=== PATIENT | female | born 1975 | race African-American/Black ===

== ENCOUNTER 2017-07-27 12:24 | Outpatient (CLI) | payer MEDICARE ==
--- NOTE | 2017-07-27 13:57 | RAD ---
PA AND LATERAL CHEST XRAY: DATE: 07/27/17. HISTORY: Hypertension and abnormal weight gain. Shortness of breath. COMPARISON: 06/03/11. FINDINGS: The cardiac silhouette and pulmonary vasculature are within normal limits. The lungs remain clear. There has been no interval change when compared to the prior exam. IMPRESSION: No acute cardiopulmonary process. POS: [facility]
== END 2017-07-27 12:25 | disposition home or self-care (01) ==
LOC: RAD 12:24
PROVIDERS: ATTEND Family Medicine
DX: R06.02 Shortness of breath (principal); I10 Essential (primary) hypertension; R63.5 Abnormal weight gain
CPT/HCPCS: 71020

== ENCOUNTER 2017-07-31 21:25 | Emergency (ER) | payer MEDICARE ==
[2017-07-31 22:15] LABS: ALT (SGPT) 19 U/L (8-55); AST (SGOT) 18 U/L (5-34); Alkaline Phosphatase 104 U/L (40-150); Anion Gap 16 mmol/L (10-20); BUN (Urea Nitrogen) 18 mg/dL (7.0-18.7); Bilirubin, Total 0.6 mg/dL (0.2-1.2); Calc. Creatinine Clearance 0 mL/min (70-130); Calcium 9.7 mg/dL (7.8-10.44); Carbon Dioxide 27 mmol/L (22-29); Chloride 102 mmol/L (98-107); Estimated GFR-MDRD 45; Globulin 4.1 g/dL (2.4-3.5); Lipase 14 U/L (8-78); Protein, Total 7.7 g/dL (6.0-8.3)
[2017-07-31 22:19] LABS: #Basophils 0.1 thou/uL (0.0-0.2); #Lymphocytes 1.6 thou/uL (1.20-3.40); #Monocytes 0.9 thou/uL (0.11-0.59); #Neutrophils 7.5 thou/uL (1.40-6.50); %Basophils 0.6 % (0.0-1.0); %Eosinophils 0.4 % (0.0-10.0); %Lymphocytes 15.9 % (21.0-51.0); %Monocytes 8.4 % (0.0-10.0); Anisocytosis SLIGHT = 6-15 cells (100X) (0-5/hpf); Hematocrit 38.8 % (36.0-47.0); Hypochromia SLIGHT = 6-15 cells (100X) (0-5/hpf); Mean Platelet Volume 10.7 fL (7.4-10.4); Neutrophil 77 % (42-75); Red Blood Cell (RBC) Count 4.75 mill/uL (4.20-5.40); White Blood Cell (WBC) Count 10.1 thou/uL (4.8-10.8)
== END 2017-07-31 22:41 | disposition home or self-care (01) ==
LOC: SCSER 21:25
DX: R19.7 Diarrhea, unspecified (principal); R11.2 Nausea with vomiting, unspecified; E66.9 Obesity, unspecified; J45.909 Unspecified asthma, uncomplicated; I10 Essential (primary) hypertension; F17.210 Nicotine dependence, cigarettes, uncomplicated; F31.9 Bipolar disorder, unspecified; F41.9 Anxiety disorder, unspecified
CPT/HCPCS: 80053; 83690; 84703; 85025; 96360; 99406

== ENCOUNTER 2017-11-04 19:30 | Outpatient (CLI) | payer MEDICARE, OTHER | END 2017-11-04 19:31 | disposition home or self-care (01) | LOC: SLEEPLAB 19:30 | PROVIDERS: ATTEND Family Medicine | DX: R40.0 Somnolence (principal); R53.83 Other fatigue; I10 Essential (primary) hypertension | CPT/HCPCS: 95811 ==

== ENCOUNTER 2017-12-01 22:09 | Emergency (ER) | payer MEDICARE, OTHER, MEDICAID ==
--- NOTE | 2017-12-01 23:14 | RAD ---
PORTABLE AP CHEST X-RAY 12/01/17 HISTORY: Hypertension, abnormal weight gain, shortness of breath. COMPARISON: 07/27/17. FINDINGS: The cardiac silhouette and pulmonary vasculature are within normal limits. There is a curvilinear inc reased density seen at the medial left lung base which may represent either atelectasis or scarring. Lungs are otherwise clear. No other interval change. IMPRESSION: Curvilinear area of scarring versus atelectasis left lung base. There is otherwise no acute cardiopul monary process. POS: [facility]
[2017-12-01 23:15] LABS: #Basophils 0.1 thou/uL (0.0-0.2); #Eosinphils 0.2 thou/uL (0.0-0.7); #Monocytes 0.9 thou/uL (0.11-0.59); #Neutrophils 6.9 thou/uL (1.40-6.50); %Basophils 0.9 % (0.0-1.0); %Eosinophils 1.4 % (0.0-10.0); %Lymphocytes 33.4 % (21.0-51.0); %Monocytes 7.2 % (0.0-10.0); %Neutrophils 57.1 % (42.0-75.0); Hemoglobin 11.5 g/dL (12.0-16.0); Mean Corpuscular Volume 77.5 fl (81.0-99.0); Mean Platelet Volume 10.6 fL (7.4-10.4); Platelet Count 285 thou/uL (130-400); RBC Distribution Width 17.3 % (11.5-14.5); Red Blood Cell (RBC) Count 4.76 mill/uL (4.20-5.40)
[2017-12-01 23:18] LABS: Anisocytosis SLIGHT = 6-15 cells (100X) (0-5/hpf)
[2017-12-01 23:19] LABS: Anion Gap 15 mmol/L (10-20); BUN (Urea Nitrogen) 10 mg/dL (7.0-18.7); Calc. Creatinine Clearance 0 mL/min (70-130); Carbon Dioxide 25 mmol/L (22-29); Chloride 106 mmol/L (98-107); Estimated GFR-MDRD 62; Glucose 113 mg/dL (70-105); Potassium 4.1 mmol/L (3.5-5.1); Sodium 142 mmol/L (136-145)
[2017-12-01 23:24] LABS: CKMB 1.2 ng/mL (0-6.6); Troponin I Less than 0.010 ng/mL (< 0.028)
--- NOTE | 2017-12-29 13:18 | EKG ---
Test Reason : Blood Pressure : / mmHG Vent. Rate : 084 BPM Atrial Rate : 084 BPM P-R Int : 168 ms QRS Dur : 082 ms QT Int : 370 ms P-R-T Axes : 056 032 042 degrees QTc Int : 437 ms Normal sinus rhythm Possible Left atrial enlargement Borderline ECG Confirmed by ADAL FARRIS ([id number]), story editor DANNY AZEVEDO ([id number]) on 12/29/2017 1:18:11 PM Referred By: Confirmed By:ADAL FARRIS
== END 2017-12-01 23:32 | disposition home or self-care (01) ==
LOC: SCSER 22:09
DX: R68.84 Jaw pain (principal); I10 Essential (primary) hypertension; J45.909 Unspecified asthma, uncomplicated; E66.9 Obesity, unspecified; F41.9 Anxiety disorder, unspecified; F31.9 Bipolar disorder, unspecified; F17.210 Nicotine dependence, cigarettes, uncomplicated; Z79.899 Other long term (current) drug therapy
CPT/HCPCS: 71045; 80048; 82553; 84484; 85025; 93005; 96372

== ENCOUNTER 2018-01-12 11:28 | Outpatient (CLI) | payer MEDICARE, MEDICAID | END 2018-01-12 11:29 | disposition home or self-care (01) | LOC: BICMAMMO 11:28 | PROVIDERS: ATTEND Family Medicine | DX: Z12.31 Encounter for screening mammogram for malignant neoplasm of breast (principal) | CPT/HCPCS: 77063; 77067 ==

== ENCOUNTER 2018-04-24 12:54 | Outpatient (CLI) | payer MEDICARE, MEDICAID ==
--- NOTE | 2018-04-24 13:17 | RAD ---
CHEST TWO VIEWS: History: Dyspnea. Comparison: 12-01-17 FINDINGS: Cardiac silhouette and pulmonary vasculature are unremarkable. Mediastinum is midline. Posterior cost ophrenic angles are excluded from the image. There is no confluent airspace consolidation, pneumothor ax, or pleural fluid apparent. IMPRESSION: No active cardiopulmonary abnormalities are demonstrated. POS: [facility]
== END 2018-04-24 12:55 | disposition home or self-care (01) ==
LOC: RAD 12:54
PROVIDERS: ATTEND Internal Medicine Critical Care Medicine
DX: R06.00 Dyspnea, unspecified (principal)
CPT/HCPCS: 71046

== ENCOUNTER 2018-07-08 11:22 | Emergency (ER) | payer MEDICARE, MEDICAID ==
[2018-07-08 12:34] LABS: Anisocytosis SLIGHT = 6-15 cells (100X) (0-5/hpf); Band 1 % (5-11); Eosinophils 2 % (0-10); Hemoglobin 10.2 g/dL (12.0-16.0); Hypochromia SLIGHT = 6-15 cells (100X) (0-5/hpf); Lymphocytes 28 % (21-51); MDiff Complete? YES; Macrocytosis SLIGHT = 6-15 cells (100X) (0-5/hpf); Mean Corpuscular Hemoglobin 23.4 pg (27.0-31.0); Mean Corpuscular Volume 75.5 fL (78.0-98.0); Mean Platelet Volume 11.3 fL (7.4-10.4); Microcytosis SLIGHT = 6-15 cells (100X) (0-5/hpf); Monocytes 10 % (0-10); Neutrophil 56 % (42-75); PLT Morphology Comment Appears Adequate; Platelet Count 228 thou/uL (130-400); Polychromasia SLIGHT = 2-3 cells (100X) (0-2/hpf); Reactive Lymphocytes 3 % (0-10); Red Blood Cell (RBC) Count 4.37 mill/uL (4.20-5.40); Target Cells SLIGHT = 2-5 cells (100X) (0-1/hpf); White Blood Cell (WBC) Count 11.6 thou/uL (4.8-10.8)
[2018-07-08 12:38] LABS: ALT (SGPT) 20 U/L (8-55); AST (SGOT) 22 U/L (5-34); Albumin 4.2 g/dL (3.5-5.0); Alkaline Phosphatase 106 U/L (40-150); Anion Gap 16 mmol/L (10-20); BUN (Urea Nitrogen) 11 mg/dL (7.0-18.7); Bilirubin, Total 0.5 mg/dL (0.2-1.2); Calc. Creatinine Clearance 0 mL/min (70-130); Calcium 10.2 mg/dL (7.8-10.44); Carbon Dioxide 23 mmol/L (22-29); Chloride 104 mmol/L (98-107); Estimated GFR-MDRD 52; Globulin 4.5 g/dL (2.4-3.5); Glucose 129 mg/dL (70-105); Potassium 4.2 mmol/L (3.5-5.1); Protein, Total 8.7 g/dL (6.0-8.3); Sodium 139 mmol/L (136-145)
[2018-07-08 12:45] LABS: BHCG - Serum Negative (NEGATIVE); Pregs Control Background? CLEAR/WHITE (CLR/WHITE); Pregs Control Bar Appear? YES (CONTROL BAR)
== END 2018-07-08 15:17 | disposition home or self-care (01) ==
LOC: SCSER 11:22
DX: I10 Essential (primary) hypertension (principal); N19 Unspecified kidney failure; D50.9 Iron deficiency anemia, unspecified; E66.9 Obesity, unspecified; J45.909 Unspecified asthma, uncomplicated; F41.0 Panic disorder [episodic paroxysmal anxiety]; F17.210 Nicotine dependence, cigarettes, uncomplicated; Z71.6 Tobacco abuse counseling; Z79.899 Other long term (current) drug therapy
CPT/HCPCS: 36416; 80053; 84703; 85025; 93005; 99406; 36415-59

== ENCOUNTER 2019-03-11 14:24 | Outpatient (CLI) | payer MEDICARE, MEDICAID ==
--- NOTE | 2019-03-11 15:19 | MMO ---
Bilateral MAMMO Bilat Screen [facility]. CLINICAL HISTORY: Patient is 43 years old and is seen for screening. The patient has no family history of breast cancer. The patient has no personal history of cancer. VIEWS: The views performed were: bilateral craniocaudal with tomosynthesis and bilateral mediolateral oblique with tomosynthesis. FILMS COMPARED: The present examination has been compared to prior imaging studies performed at [facility] on 09/09/2016 and 01/12/2018. MAMMOGRAM FINDINGS: The breasts are almost entirely fat. There is an oval mass measuring 4 millimeters seen in the anterior region of the left breast at 6 o'clock. In the right breast, there are no suspicious masses, calcifications or areas of architectural distortion. IMPRESSION: MASS IN THE LEFT BREAST REQUIRES ADDITIONAL EVALUATION. SPOT COMPRESSION IS RECOMMENDED. AN ULTRASOUND EXAM IS RECOMMENDED IF NEEDED. ADDITIONAL IMAGING. THE RESULTS OF THIS EXAM WERE SENT TO THE PATIENT. ACR BI-RADS Category 0 - Incomplete: Need additional imaging evaluation. [facility] will notify the patient of the need for additional imaging services. MAMMOGRAPHY NOTE: 1. A negative mammogram report should not delay a biopsy if a dominant of clinically suspicious mass is present. 2. Approximately 10% to 15% of breast cancers are not detected by mammography. 3. Adenosis and dense breasts may obscure an underlying neoplasm. Reported by: Ana Paula PARKER Electonically Signed: [id number]
== END 2019-03-11 14:25 | disposition home or self-care (01) ==
LOC: BICMAMMO 14:24
PROVIDERS: ATTEND Family Medicine
DX: Z12.31 Encounter for screening mammogram for malignant neoplasm of breast (principal); N63.23 Unspecified lump in the left breast, lower outer quadrant
CPT/HCPCS: 77063; 77067

== ENCOUNTER 2019-03-25 09:44 | Outpatient (CLI) | payer MEDICARE, MEDICAID ==
--- NOTE | 2019-03-25 10:24 | MMO ---
Left Breast MAMMO Unilat Diag [facility]. CLINICAL HISTORY: Patient is 43 years old and is seen for diagnostic exam. The patient has no family history of breast cancer. The patient has no personal history of cancer. VIEWS: The views performed were: left craniocaudal with tomosynthesis; left mediolateral oblique with tomosynthesis; and left mediolateral with tomosynthesis. FILMS COMPARED: The present examination has been compared to prior imaging studies performed at [facility] on 09/09/2016, 01/12/2018 and 03/11/2019. MAMMOGRAM FINDINGS: The breast is almost entirely fat. Tomosynthesis compression images show the abnormality to represent superimpostion of normal breast parenchyma. There are no suspicious masses, suspicious calcifications, or new areas of architectural distortion. IMPRESSION: THERE IS NO MAMMOGRAPHIC EVIDENCE OF MALIGNANCY. A ROUTINE FOLLOW-UP MAMMOGRAM IN 1 YEAR IS RECOMMENDED. THE RESULTS OF THIS EXAM WERE SENT TO THE PATIENT. ACR BI-RADS Category 2 - Benign finding MAMMOGRAPHY NOTE: 1. A negative mammogram report should not delay a biopsy if a dominant of clinically suspicious mass is present. 2. Approximately 10% to 15% of breast cancers are not detected by mammography. 3. Adenosis and dense breasts may obscure an underlying neoplasm. Reported by: ZEKE GUILLORY MD Electonically Signed: [id number]
== END 2019-03-25 09:45 | disposition home or self-care (01) ==
LOC: BICMAMMO 09:44
PROVIDERS: ATTEND Family Medicine
DX: N63.20 Unspecified lump in the left breast, unspecified quadrant (principal)
CPT/HCPCS: 77065; G0279

== ENCOUNTER 2020-04-16 14:36 | Outpatient (CLI) | payer MEDICARE, OTHER ==
--- NOTE | 2020-04-16 16:21 | MMO ---
Bilateral MAMMO Bilat Screen [facility]. CLINICAL HISTORY: Patient is 44 years old and is seen for screening. The patient has no family history of breast cancer. The patient has no personal history of cancer. VIEWS: The views performed were: bilateral craniocaudal with tomosynthesis and bilateral mediolateral oblique with tomosynthesis. FILMS COMPARED: The present examination has been compared to prior imaging studies performed at [facility] on 09/09/2016, 01/12/2018, 03/11/2019 and 03/25/2019. This study has been interpreted with the assistance of computer-aided detection. MAMMOGRAM FINDINGS: The breasts are almost entirely fat. There are no suspicious masses, suspicious calcifications, or new areas of architectural distortion. IMPRESSION: THERE IS NO MAMMOGRAPHIC EVIDENCE OF MALIGNANCY. A ROUTINE FOLLOW-UP MAMMOGRAM IN 1 YEAR IS RECOMMENDED. THE RESULTS OF THIS EXAM WERE SENT TO THE PATIENT. ACR BI-RADS Category 1 - Negative MAMMOGRAPHY NOTE: 1. A negative mammogram report should not delay a biopsy if a dominant of clinically suspicious mass is present. 2. Approximately 10% to 15% of breast cancers are not detected by mammography. 3. Adenosis and dense breasts may obscure an underlying neoplasm. Reported by: SHERITA MUSE MD Electonically Signed: [id number]
== END 2020-04-16 14:37 | disposition home or self-care (01) ==
LOC: BICMAMMO 14:36
PROVIDERS: ATTEND Student in an Organized Health Care Education/Training Program
DX: Z12.31 Encounter for screening mammogram for malignant neoplasm of breast (principal)
CPT/HCPCS: 77063; 77067

== ENCOUNTER 2020-12-06 13:09 | Emergency (ER) | payer OTHER ==
[2020-12-06] MEDS ORDERED: Ketorolac Tromethamine 30 MG/ML VIAL ONE (13:43)
== END 2020-12-06 15:38 | disposition home or self-care (01) ==
LOC: ERS 13:09
DX: M79.672 Pain in left foot (principal); I10 Essential (primary) hypertension; F17.210 Nicotine dependence, cigarettes, uncomplicated; W01.0XXA Fall on same level from slipping, tripping and stumbling without subsequent striking against object, initial encounter
CPT/HCPCS: 96372; J1885

== ENCOUNTER 2021-03-12 21:33 | Emergency (ER) | payer MEDICARE, OTHER ==
[~2021-03-12 21:33] MED LIST: Iopamidol-370 76% 500 ML 1 ML ONE
[2021-03-12 22:05] LABS: #Eosinphils 0.1 thou/uL (0.0-0.7); #Lymphocytes 3.2 thou/uL (1.20-3.40); #Neutrophils 9.8 thou/uL (1.40-6.50); %Basophils 0.2 % (0.0-1.0); %Eosinophils 0.7 % (0.0-10.0); %Monocytes 6.8 % (0.0-10.0); %Neutrophils 69.3 % (42.0-75.0); Hemoglobin 12.1 g/dL (12.0-16.0); Mean Corpuscular HGB CONC 32.6 g/dL (32.0-36.0); Mean Corpuscular Hemoglobin 30.6 pg (27.0-31.0); Mean Corpuscular Volume 93.9 fL (78.0-98.0); Mean Platelet Volume 9.8 fL (7.4-10.4); Platelet Count 205 thou/uL (130-400); RBC Distribution Width 14.2 % (11.5-14.5); Red Blood Cell (RBC) Count 3.97 mill/uL (4.20-5.40); White Blood Cell (WBC) Count 14.1 thou/uL (4.8-10.8)
[2021-03-12 22:27] LABS: ALT (SGPT) 10 U/L (8-55); AST (SGOT) 11 U/L (5-34); Albumin 3.9 g/dL (3.5-5.0); Alkaline Phosphatase 152 U/L (40-110); Anion Gap 13 mmol/L (10-20); BUN (Urea Nitrogen) 15 mg/dL (7.0-18.7); Bilirubin, Total 0.8 mg/dL (0.2-1.2); Calc. Creatinine Clearance 0 mL/min (70-130); Calcium 9.4 mg/dL (7.8-10.44); Carbon Dioxide 23 mmol/L (22-29); Chloride 105 mmol/L (98-107); Globulin 4.2 g/dL (2.4-3.5); Glucose 96 mg/dL (70-105); Lipase 17 U/L (8-78); Potassium 4.1 mmol/L (3.5-5.1); Protein, Total 8.1 g/dL (6.0-8.3); Sodium 137 mmol/L (136-145)
[2021-03-12] MEDS ORDERED: Acetaminophen 500 MG TAB ONE (23:12)
== END 2021-03-13 00:05 | disposition home or self-care (01) ==
LOC: ERS 21:33
DX: K52.9 Noninfective gastroenteritis and colitis, unspecified (principal); I10 Essential (primary) hypertension; J45.909 Unspecified asthma, uncomplicated; E66.9 Obesity, unspecified; F17.210 Nicotine dependence, cigarettes, uncomplicated
CPT/HCPCS: 74177; 80053; 83605; 83690; 84484; 85025; 87040; Q9967

== ENCOUNTER 2021-04-21 08:27 | Outpatient (CLI) | payer MEDICARE, OTHER | END 2021-04-21 08:28 | disposition home or self-care (01) | LOC: BICMAMMO 08:27 | PROVIDERS: ATTEND Student in an Organized Health Care Education/Training Program | DX: Z12.31 Encounter for screening mammogram for malignant neoplasm of breast (principal) | CPT/HCPCS: 77063; 77067 ==

== ENCOUNTER 2021-10-11 20:24 | Emergency (ER) | payer MEDICARE, MEDICAID, OTHER ==
[2021-10-11] MEDS ORDERED: Ketorolac Tromethamine 30 MG/ML VIAL ONE (20:59)
[2021-10-11] MEDS ORDERED: Dexamethasone 10 MG/ML VIAL ONE (20:59)
== END 2021-10-11 21:10 | disposition home or self-care (01) ==
LOC: ERS 20:24
DX: M77.12 Lateral epicondylitis, left elbow (principal); I10 Essential (primary) hypertension; E66.9 Obesity, unspecified; J45.909 Unspecified asthma, uncomplicated; F17.210 Nicotine dependence, cigarettes, uncomplicated; Z79.899 Other long term (current) drug therapy; Z79.84 Long term (current) use of oral hypoglycemic drugs
CPT/HCPCS: 96372; 99283; J1100; J1885

== ENCOUNTER 2021-10-17 13:19 | Emergency (ER) | payer MEDICAID, MEDICARE, OTHER ==
[2021-10-17 22:09] LABS: SARS-CoV-2 PCR by NAA Not Detected (NotDetected)
== END 2021-10-17 16:40 | disposition home or self-care (01) ==
LOC: ERS 13:19
DX: R11.2 Nausea with vomiting, unspecified (principal); R19.7 Diarrhea, unspecified; I10 Essential (primary) hypertension; J45.909 Unspecified asthma, uncomplicated; E66.9 Obesity, unspecified; F17.210 Nicotine dependence, cigarettes, uncomplicated; Z20.822 Contact with and (suspected) exposure to COVID-19; Z79.899 Other long term (current) drug therapy
CPT/HCPCS: 87804 ×2; U0003; U0005; 99284

== ENCOUNTER 2022-01-26 14:46 | Emergency (ER) | payer MEDICARE, OTHER ==
[2022-01-26 15:17] LABS: #Basophils 0.1 thou/uL (0.0-0.2); #Eosinphils 0.2 thou/uL (0.0-0.7); #Lymphocytes 3.1 thou/uL (1.20-3.40); #Monocytes 0.8 thou/uL (0.11-0.59); #Neutrophils 9.1 thou/uL (1.40-6.50); %Basophils 0.5 % (0.0-1.0); %Eosinophils 1.5 % (0.0-10.0); %Lymphocytes 23.1 % (21.0-51.0); %Monocytes 6.2 % (0.0-10.0); %Neutrophils 68.7 % (42.0-75.0); Hemoglobin 12.2 g/dL (12.0-16.0); Mean Corpuscular HGB CONC 31.2 g/dL (32.0-36.0); Mean Corpuscular Volume 92.9 fL (78.0-98.0); Platelet Count 245 thou/uL (130-400); Red Blood Cell (RBC) Count 4.19 mill/uL (4.20-5.40); White Blood Cell (WBC) Count 13.2 thou/uL (4.8-10.8)
[2022-01-26 15:24] LABS: BHCG - Serum Negative (NEGATIVE); Pregs Control Background? CLEAR/WHITE (CLR/WHITE); Pregs Control Bar Appear? YES (CONTROL BAR)
[2022-01-26 15:41] LABS: Anion Gap 17 mmol/L (10-20); BUN (Urea Nitrogen) 11 mg/dL (7.0-18.7); Calc. Creatinine Clearance 0 mL/min (70-130); Carbon Dioxide 22 mmol/L (22-29); Chloride 106 mmol/L (98-107); Potassium 3.9 mmol/L (3.5-5.1); Sodium 141 mmol/L (136-145)
[2022-01-26 15:42] LABS: ALT (SGPT) 15 U/L (8-55); AST (SGOT) 15 U/L (5-34); Albumin 4.3 g/dL (3.5-5.0); Alkaline Phosphatase 138 U/L (40-110); Bilirubin, Total 0.7 mg/dL (0.2-1.2); CK (CPK) 358 U/L (29-168); Calcium 9.9 mg/dL (7.8-10.44); Globulin 4.2 g/dL (2.4-3.5); Glucose 119 mg/dL (70-105); Lipase 22 U/L (8-78); Protein, Total 8.5 g/dL (6.0-8.3)
== END 2022-01-26 17:12 | disposition home or self-care (01) ==
LOC: ERS 14:46
DX: R07.9 Chest pain, unspecified (principal); I10 Essential (primary) hypertension; J45.909 Unspecified asthma, uncomplicated; E66.9 Obesity, unspecified; F17.210 Nicotine dependence, cigarettes, uncomplicated; Z79.899 Other long term (current) drug therapy; Z79.84 Long term (current) use of oral hypoglycemic drugs
CPT/HCPCS: 36415; 71045; 80053; 82550; 82728; 83540; 83550; 83690; 84484; 84703; 85025; 93005

== ENCOUNTER 2022-01-30 22:53 | Emergency (ER) | payer MEDICARE, OTHER ==
[2022-01-30 23:59] LABS: #Eosinphils 0.2 thou/uL (0.0-0.7); %Basophils 0.1 % (0.0-1.0); %Eosinophils 1.4 % (0.0-10.0); %Lymphocytes 18.7 % (21.0-51.0); %Monocytes 6.1 % (0.0-10.0); %Neutrophils 73.7 % (42.0-75.0); Hemoglobin 11.8 g/dL (12.0-16.0); Mean Corpuscular HGB CONC 32.1 g/dL (32.0-36.0); Mean Corpuscular Hemoglobin 29.6 pg (27.0-31.0); Mean Corpuscular Volume 92.3 fL (78.0-98.0); Mean Platelet Volume 9.5 fL (7.4-10.4); Platelet Count 211 thou/uL (130-400); RBC Distribution Width 13.8 % (11.5-14.5); Red Blood Cell (RBC) Count 3.98 mill/uL (4.20-5.40); White Blood Cell (WBC) Count 16.3 thou/uL (4.8-10.8)
[2022-01-31 00:10] LABS: Anion Gap 15 mmol/L (10-20); BUN (Urea Nitrogen) 10 mg/dL (7.0-18.7); Calc. Creatinine Clearance 0 mL/min (70-130); Carbon Dioxide 22 mmol/L (22-29); Chloride 106 mmol/L (98-107); Potassium 3.5 mmol/L (3.5-5.1); Sodium 139 mmol/L (136-145)
[2022-01-31 00:11] LABS: ALT (SGPT) 14 U/L (8-55); AST (SGOT) 12 U/L (5-34); Alkaline Phosphatase 126 U/L (40-110); Calcium 9.6 mg/dL (7.8-10.44); Glucose 111 mg/dL (70-105)
[2022-01-31] MEDS ORDERED: methylPREDNISolone Sod Succ/PF 125 MG/2 ML VIAL ONE (00:21)
[2022-01-31 01:16] LABS: SARS-CoV-2 NAA Rapid Test Not Detected (NotDetected)
== END 2022-01-31 01:50 | disposition home or self-care (01) ==
LOC: ERS 22:53
DX: J45.901 Unspecified asthma with (acute) exacerbation (principal); J06.9 Acute upper respiratory infection, unspecified; Z20.822 Contact with and (suspected) exposure to COVID-19; I10 Essential (primary) hypertension; F17.210 Nicotine dependence, cigarettes, uncomplicated; Z79.899 Other long term (current) drug therapy
CPT/HCPCS: 0240U; 71045; 80053; 85025; 36415; 96372; J2930; J7620

== ENCOUNTER 2022-06-12 11:45 | Emergency (ER) | payer OTHER ==
[2022-06-12 12:20] LABS: #Eosinphils 0.5 thou/uL (0.0-0.7); #Lymphocytes 2.9 thou/uL (1.20-3.40); #Monocytes 0.7 thou/uL (0.11-0.59); #Neutrophils 5.8 thou/uL (1.40-6.50); %Basophils 0.4 % (0.0-1.0); %Lymphocytes 29.3 % (21.0-51.0); %Monocytes 7.2 % (0.0-10.0); %Neutrophils 58.2 % (42.0-75.0); Hemoglobin 11.2 g/dL (12.0-16.0); Mean Corpuscular HGB CONC 30.8 g/dL (32.0-36.0); Mean Corpuscular Hemoglobin 27.9 pg (27.0-31.0); Mean Corpuscular Volume 90.6 fl (78.0-98.0); Mean Platelet Volume 8.8 fL (7.4-10.4); Platelet Count 275 thou/uL (130-400); RBC Distribution Width 15.2 % (11.5-14.5); Red Blood Cell (RBC) Count 4.01 mill/uL (4.20-5.40)
[2022-06-12 12:21] LABS: ALT (SGPT) 16 U/L (8-55); AST (SGOT) 11 U/L (5-34); Albumin 4.1 g/dL (3.5-5.0); Alkaline Phosphatase 122 U/L (40-110); Anion Gap 15 mmol/L (10-20); BUN (Urea Nitrogen) 8 mg/dL (7.0-18.7); Bilirubin, Total 0.9 mg/dL (0.2-1.2); Calc. Creatinine Clearance 0 mL/min (70-130); Calcium 9.3 mg/dL (7.8-10.44); Carbon Dioxide 24 mmol/L (22-29); Chloride 106 mmol/L (98-107); Estimated GFR 57; Globulin 3.8 g/dL (2.4-3.5); Glucose 125 mg/dL (70-105); Potassium 3.9 mmol/L (3.5-5.1); Protein, Total 7.9 g/dL (6.0-8.3); Sodium 141 mmol/L (136-145)
[2022-06-12] MEDS ORDERED: Iopamidol-370 76% 500 ML 1 ML ONE (13:53)
== END 2022-06-12 16:39 | disposition home or self-care (01) ==
LOC: ERS 11:45
DX: K04.7 Periapical abscess without sinus (principal); I10 Essential (primary) hypertension; E66.9 Obesity, unspecified; F17.210 Nicotine dependence, cigarettes, uncomplicated; E11.9 Type 2 diabetes mellitus without complications; Z79.84 Long term (current) use of oral hypoglycemic drugs; Z79.899 Other long term (current) drug therapy
CPT/HCPCS: 36415; 70491; 80053; 85025; Q9967

== ENCOUNTER 2022-06-30 15:47 | Emergency (ER) | payer OTHER ==
[2022-06-30 16:53] LABS: SARS-CoV-2 NAA Rapid Test DETECTED (NotDetected)
== END 2022-06-30 17:37 | disposition home or self-care (01) ==
LOC: ERS 15:47
DX: U07.1 COVID-19 (principal); I10 Essential (primary) hypertension; E66.9 Obesity, unspecified; F17.210 Nicotine dependence, cigarettes, uncomplicated; Z79.899 Other long term (current) drug therapy
CPT/HCPCS: 0240U; 99283

== ENCOUNTER 2022-07-02 07:06 | Inpatient (IN) | payer OTHER ==
[2022-07-02] MEDS ORDERED: Meclizine HCl 25 MG TAB ONE (08:00)
[2022-07-02 08:01] LABS: #Eosinphils 0.6 thou/uL (0.0-0.7); #Lymphocytes 1.9 thou/uL (1.20-3.40); #Monocytes 0.6 thou/uL (0.11-0.59); #Neutrophils 3.6 thou/uL (1.40-6.50); %Basophils 0.4 % (0.0-1.0); %Eosinophils 8.4 % (0.0-10.0); %Lymphocytes 28.7 % (21.0-51.0); %Monocytes 8.5 % (0.0-10.0); %Neutrophils 54.1 % (42.0-75.0); Hemoglobin 11.1 g/dL (12.0-16.0); Mean Corpuscular HGB CONC 29.8 g/dL (32.0-36.0); Mean Corpuscular Hemoglobin 26.5 pg (27.0-31.0); Mean Corpuscular Volume 89.1 fl (78.0-98.0); Mean Platelet Volume 9.6 fL (7.4-10.4); Platelet Count 251 10x3/uL (130-400); RBC Distribution Width 15.7 % (11.5-14.5); Red Blood Cell (RBC) Count 4.19 mill/uL (4.20-5.40); White Blood Cell (WBC) Count 6.7 10x3/uL (4.8-10.8)
[2022-07-02 08:30] LABS: CKMB 0.7 ng/mL (0-6.6)
[2022-07-02 08:41] LABS: Albumin 3.7 g/dL (3.5-5.0)
[2022-07-02 08:43] LABS: Calcium 8.7 mg/dL (7.8-10.44); Chloride 104 mmol/L (98-107); Potassium 3.9 mmol/L (3.5-5.1); Sodium 139 mmol/L (136-145)
[2022-07-02 08:44] LABS: Globulin 3.6 g/dL (2.4-3.5); Glucose 173 mg/dL (70-105); Protein, Total 7.3 g/dL (6.0-8.3)
[2022-07-02 08:45] LABS: Anion Gap 15 mmol/L (10-20); Carbon Dioxide 24 mmol/L (22-29)
[2022-07-02 08:46] LABS: Bilirubin, Total 0.8 mg/dL (0.2-1.2)
[2022-07-02 08:47] LABS: Alkaline Phosphatase 114 U/L (40-110); Calc. Creatinine Clearance 0 mL/min (70-130); Estimated GFR 39
[2022-07-02 08:48] LABS: BUN (Urea Nitrogen) 12 mg/dL (7.0-18.7)
[2022-07-02 08:49] LABS: AST (SGOT) 23 U/L (5-34)
[2022-07-02 08:50] LABS: ALT (SGPT) 14 U/L (8-55)
[2022-07-02] MEDS ORDERED: Aspirin Chewable 81 MG TAB ONE (09:50)
[2022-07-02 11:17] LABS: Troponin I Less than 0.010 ng/mL (< 0.028)
[2022-07-02] MEDS ORDERED: ALPRAZolam 0.25 MG TAB PO PRN (13:02)
[2022-07-02] MEDS ORDERED: Acetaminophen 325 MG TAB PO PRN (13:03)
[2022-07-02] MEDS ORDERED: Dextrose 50% Abboject 50 ML SYRINGE SLOW IVP PRN (13:03)
[2022-07-02] MEDS ORDERED: Ondansetron PF 4 MG/2 ML Vial IVP PRN (13:03)
[2022-07-02] MEDS ORDERED: HumaLOG 300 UNITS/3 ML VIAL SC PRN (13:03)
[2022-07-02] MEDS ORDERED: Dextrose 5% in Water 1,000 ML IV PRN (13:03)
[2022-07-02] MEDS ORDERED: Benzonatate 100 MG CAP PO PRN (13:05)
[2022-07-02] MEDS ORDERED: Dexamethasone 10 MG/ML VIAL SLOW IVP SCH (13:08)
[2022-07-02] MEDS ORDERED: REMDESIVIR 200 MG in Sodium Chloride 0.9% 250 ML 210 ML IV SCH ×2 (13:15→14:30)
[2022-07-02] MEDS ORDERED: Electrolyte Replacement Protocol 1 EACH FS SCH (13:15)
[2022-07-02 13:54] LABS: Troponin I Less than 0.010 ng/mL (< 0.028)
[2022-07-02] MEDS ORDERED: Sodium Chloride 0.9% 1,000 ML IV SCH (14:00)
[2022-07-02] MEDS ORDERED: ALPRAZolam 0.25 MG TAB ONE (14:09)
[2022-07-02] MEDS ORDERED: Dexamethasone 10 MG/ML VIAL ONE (14:09)
[2022-07-02] MEDS ORDERED: Electrolyte Replacement Protocol FS PRN (14:15)
[2022-07-02 19:18] VITALS: BMI 64.0
[2022-07-02] MEDS: metFORMIN 500 MG TAB PO SCH (21:49)
[2022-07-02] MEDS: Aripiprazole 10 MG TAB PO SCH (21:50)
[2022-07-02] MEDS: PARoxetine 20 MG TAB PO SCH (21:50)
[2022-07-02] MEDS: Atorvastatin Calcium 20 MG TAB PO SCH (21:50)
[2022-07-03] MEDS: Meclizine HCl 25 MG TAB PO PRN ×2 (01:31→09:44)
[2022-07-03] MEDS: Ondansetron ODT 4 MG TAB PO PRN ×2 (01:53→08:23)
[2022-07-03 06:24] LABS: ALT (SGPT) 16 U/L (8-55); AST (SGOT) 21 U/L (5-34); Albumin 3.9 g/dL (3.5-5.0); Alkaline Phosphatase 117 U/L (40-110); Anion Gap 15 mmol/L (10-20); BUN (Urea Nitrogen) 16 mg/dL (7.0-18.7); Bilirubin, Total 0.7 mg/dL (0.2-1.2); Calc. Creatinine Clearance 132 mL/min (70-130); Calcium 8.9 mg/dL (7.8-10.44); Carbon Dioxide 22 mmol/L (22-29); Cardiac Risk 3.5 (Less than 4.5); Chloride 108 mmol/L (98-107); Cholesterol 108 mg/dl (< 200 Desired); Estimated GFR 48; Glucose 201 mg/dL (70-105); HDL Cholesterol 31 mg/dL (>60 Neg Risk); LDL Cholesterol, Calculated 58 mg/dL; Protein, Total 7.9 g/dL (6.0-8.3); Sodium 140 mmol/L (136-145); Triglycerides 94 mg/dL (Less than 150)
[2022-07-03] MEDS: HumaLOG 300 UNITS/3 ML VIAL SC PRN ×2 (06:30→17:00)
[2022-07-03 06:50] LABS: Band 12 % (5-11); Hemoglobin 11.3 g/dL (12.0-16.0); Lymphocytes 19 % (21-51); MDiff Complete? YES; Mean Corpuscular HGB CONC 31.4 g/dL (32.0-36.0); Mean Corpuscular Hemoglobin 28.2 pg (27.0-31.0); Mean Corpuscular Volume 89.9 fl (78.0-98.0); Mean Platelet Volume 9.2 fL (7.4-10.4); Monocytes 1 % (0-10); Neutrophil 68 % (42-75); Platelet Count 273 10x3/uL (130-400); RBC Distribution Width 15.5 % (11.5-14.5); White Blood Cell (WBC) Count 5.8 10x3/uL (4.8-10.8)
[2022-07-03] MEDS: Amlodipine 10 MG TAB PO SCH (08:24)
[2022-07-03] MEDS: Zinc Sulfate 220 MG CAP PO SCH (08:24)
[2022-07-03] MEDS: Aspirin 81 mg Enteric Coated Tablet PO SCH (08:24)
[2022-07-03] MEDS: Ascorbic Acid 500 mg Chewable Tablet PO SCH (08:24)
[2022-07-03] MEDS: metFORMIN 500 MG TAB PO SCH ×2 (08:24→17:00)
[2022-07-03] MEDS: Dexamethasone 4 MG TAB PO SCH (08:25)
[2022-07-03] MEDS: Cholecalciferol (Vitamin D3) 400 UNITS TAB PO SCH (08:26)
[2022-07-03] MEDS: Enoxaparin Sodium 40 MG/0.4 ML SYRINGE SC SCH (08:26)
[2022-07-03] MEDS: Sodium Chloride 0.9% 1,000 ML IV SCH ×2 (11:59→20:37)
[2022-07-03] MEDS: REMDESIVIR 100 MG in Sodium Chloride 0.9% 250 ML 230 ML IV SCH (14:02)
[2022-07-03] MEDS: ALPRAZolam 0.25 MG TAB PO PRN (14:08)
[2022-07-03] MEDS: PARoxetine 20 MG TAB PO SCH (20:36)
[2022-07-03] MEDS: Aripiprazole 10 MG TAB PO SCH (20:36)
[2022-07-03] MEDS: Atorvastatin Calcium 20 MG TAB PO SCH (20:36)
[2022-07-04 05:56] LABS: ALT (SGPT) 18 U/L (8-55); AST (SGOT) 22 U/L (5-34); Albumin 3.6 g/dL (3.5-5.0); Alkaline Phosphatase 105 U/L (40-110); Anion Gap 15 mmol/L (10-20); BUN (Urea Nitrogen) 20 mg/dL (7.0-18.7); Bilirubin, Total 0.5 mg/dL (0.2-1.2); Calc. Creatinine Clearance 138 mL/min (70-130); Calcium 8.8 mg/dL (7.8-10.44); Carbon Dioxide 20 mmol/L (22-29); Chloride 107 mmol/L (98-107); Estimated GFR 51; Glucose 244 mg/dL (70-105); Potassium 5.8 mmol/L (3.5-5.1); Protein, Total 7.6 g/dL (6.0-8.3); Sodium 136 mmol/L (136-145)
[2022-07-04 06:00] LABS: Band 9 % (5-11); Hemoglobin 10.6 g/dL (12.0-16.0); Lymphocytes 20 % (21-51); MDiff Complete? YES; Mean Corpuscular HGB CONC 30.6 g/dL (32.0-36.0); Mean Corpuscular Hemoglobin 27.1 pg (27.0-31.0); Mean Corpuscular Volume 88.6 fl (78.0-98.0); Mean Platelet Volume 10.1 fL (7.4-10.4); Monocytes 6 % (0-10); Neutrophil 63 % (42-75); Platelet Count 234 10x3/uL (130-400); RBC Distribution Width 15.8 % (11.5-14.5); Reactive Lymphocytes 2 % (0-10); Red Blood Cell (RBC) Count 3.91 mill/uL (4.20-5.40); White Blood Cell (WBC) Count 9.7 10x3/uL (4.8-10.8)
[2022-07-04] MEDS: Sodium Chloride 0.9% 1,000 ML IV SCH ×2 (06:38→18:59)
[2022-07-04] MEDS: Cholecalciferol (Vitamin D3) 400 UNITS TAB PO SCH (09:13)
[2022-07-04] MEDS: Ascorbic Acid 500 mg Chewable Tablet PO SCH (09:13)
[2022-07-04] MEDS: Aspirin 81 mg Enteric Coated Tablet PO SCH (09:13)
[2022-07-04] MEDS: metFORMIN 500 MG TAB PO SCH ×2 (09:13→17:27)
[2022-07-04] MEDS: Amlodipine 10 MG TAB PO SCH (09:13)
[2022-07-04] MEDS: Zinc Sulfate 220 MG CAP PO SCH (09:13)
[2022-07-04] MEDS: Dexamethasone 4 MG TAB PO SCH (09:14)
[2022-07-04] MEDS: Enoxaparin Sodium 40 MG/0.4 ML SYRINGE SC SCH (09:14)
[2022-07-04] MEDS: REMDESIVIR 100 MG in Sodium Chloride 0.9% 250 ML 230 ML IV SCH (14:25)
[2022-07-04] MEDS ORDERED: Mometasone/Formoterol 200/5 60 PUFF INH SCH (20:30)
[2022-07-04] MEDS: Atorvastatin Calcium 20 MG TAB PO SCH (21:45)
[2022-07-04] MEDS: Aripiprazole 10 MG TAB PO SCH (21:45)
[2022-07-04] MEDS: PARoxetine 20 MG TAB PO SCH (21:45)
[2022-07-04] MEDS: ALPRAZolam 0.25 MG TAB PO PRN (21:52)
[2022-07-05] MEDS: Sodium Chloride 0.9% 1,000 ML IV SCH ×3 (02:25→19:39)
[2022-07-05] MEDS ORDERED: Mometasone/Formoterol 200/5 60 PUFF INH SCH (06:30)
[2022-07-05] MEDS: Mometasone/Formoterol 200/5 60 PUFF INH SCH ×2 (07:05→18:54)
[2022-07-05] MEDS: Dexamethasone 4 MG TAB PO SCH (08:46)
[2022-07-05] MEDS: metFORMIN 500 MG TAB PO SCH ×2 (08:46→18:07)
[2022-07-05] MEDS: Amlodipine 10 MG TAB PO SCH (08:47)
[2022-07-05] MEDS: Ascorbic Acid 500 mg Chewable Tablet PO SCH (08:47)
[2022-07-05] MEDS: Cholecalciferol (Vitamin D3) 400 UNITS TAB PO SCH (08:48)
[2022-07-05] MEDS: Aspirin 81 mg Enteric Coated Tablet PO SCH (08:48)
[2022-07-05] MEDS: Zinc Sulfate 220 MG CAP PO SCH (08:49)
[2022-07-05] MEDS: Enoxaparin Sodium 40 MG/0.4 ML SYRINGE SC SCH (08:49)
[2022-07-05] MEDS: Albuterol 200 PUFF (6.7GM INHALER) INH PRN (14:22)
[2022-07-05] MEDS: REMDESIVIR 100 MG in Sodium Chloride 0.9% 250 ML 230 ML IV SCH (14:23)
[2022-07-05] MEDS ORDERED: metFORMIN 500 MG TAB PO SCH (19:00)
[2022-07-05] MEDS: Aripiprazole 10 MG TAB PO SCH (19:38)
[2022-07-05] MEDS: Atorvastatin Calcium 20 MG TAB PO SCH (19:38)
[2022-07-05] MEDS: PARoxetine 20 MG TAB PO SCH (19:39)
[2022-07-05] MEDS: ALPRAZolam 0.25 MG TAB PO PRN (19:57)
[2022-07-06] MEDS: HumaLOG 300 UNITS/3 ML VIAL SC PRN (06:37)
[2022-07-06] MEDS: Sodium Chloride 0.9% 1,000 ML IV SCH (06:37)
[2022-07-06] MEDS: Albuterol 200 PUFF (6.7GM INHALER) INH PRN (06:49)
[2022-07-06] MEDS: Mometasone/Formoterol 200/5 60 PUFF INH SCH (06:50)
[2022-07-06] MEDS ORDERED: metFORMIN 500 MG TAB PO SCH (08:00)
[2022-07-06 09:23] LABS: Anion Gap 17 mmol/L (10-20); BUN (Urea Nitrogen) 22 mg/dL (7.0-18.7); Calc. Creatinine Clearance 142 mL/min (70-130); Calcium 9.5 mg/dL (7.8-10.44); Carbon Dioxide 19 mmol/L (22-29); Chloride 108 mmol/L (98-107); Estimated GFR 53; Glucose 205 mg/dL (70-105); Potassium 4.6 mmol/L (3.5-5.1); Sodium 139 mmol/L (136-145)
[2022-07-06] MEDS: Ascorbic Acid 500 mg Chewable Tablet PO SCH (09:27)
[2022-07-06] MEDS: Cholecalciferol (Vitamin D3) 400 UNITS TAB PO SCH ×2 (09:27→09:46)
[2022-07-06] MEDS: Dexamethasone 4 MG TAB PO SCH (09:27)
[2022-07-06] MEDS: Aspirin 81 mg Enteric Coated Tablet PO SCH (09:27)
[2022-07-06] MEDS: Zinc Sulfate 220 MG CAP PO SCH (09:27)
[2022-07-06] MEDS: Amlodipine 10 MG TAB PO SCH (09:27)
[2022-07-06] MEDS: Enoxaparin Sodium 40 MG/0.4 ML SYRINGE SC SCH (09:28)
[2022-07-06 11:30] VITALS: BP 136/86; TEMP 97.4
[2022-07-06] MEDS: REMDESIVIR 100 MG in Sodium Chloride 0.9% 250 ML 230 ML IV SCH (12:29)
== END 2022-07-06 14:17 | disposition home or self-care (01) | DRG 177 ==
LOC: ERS 07:06 → ERHOLD 10:02 → 2SW 18:47 → OBSVTOIN 07-04 16:36
PROVIDERS: ADMIT Hospitalist; ATTEND Hospitalist
PROC: XW033E5 Introduction of Remdesivir Anti-infective into Peripheral Vein, Percutaneous Approach, New Technology Group 5 (ICD-10-PCS; principal; 2022-07-02)
PROC: 8E0ZXY6 Isolation (ICD-10-PCS; 2022-07-02)
PROC: 5A09357 Assistance with Respiratory Ventilation, Less than 24 Consecutive Hours, Continuous Positive Airway Pressure (ICD-10-PCS; 2022-07-02)
DX: U07.1 COVID-19 (principal); J12.82 Pneumonia due to coronavirus disease 2019; J96.01 Acute respiratory failure with hypoxia; N17.9 Acute kidney failure, unspecified; Z68.44 Body mass index [BMI] 60.0-69.9, adult; G47.33 Obstructive sleep apnea (adult) (pediatric); I12.9 Hypertensive chronic kidney disease with stage 1 through stage 4 chronic kidney disease, or unspecified chronic kidney disease; E11.22 Type 2 diabetes mellitus with diabetic chronic kidney disease; N18.9 Chronic kidney disease, unspecified; M26.609 Unspecified temporomandibular joint disorder, unspecified side; F41.0 Panic disorder [episodic paroxysmal anxiety]; F31.9 Bipolar disorder, unspecified; F17.210 Nicotine dependence, cigarettes, uncomplicated; R77.8 Other specified abnormalities of plasma proteins; E86.0 Dehydration; E66.01 Morbid (severe) obesity due to excess calories; Z99.89 Dependence on other enabling machines and devices; Z79.899 Other long term (current) drug therapy; Z79.51 Long term (current) use of inhaled steroids; Z98.51 Tubal ligation status; Z90.710 Acquired absence of both cervix and uterus; Z82.49 Family history of ischemic heart disease and other diseases of the circulatory system; Z88.8 Allergy status to other drugs, medicaments and biological substances
CPT/HCPCS: 36415; 36416; 71045; 80048; 80053; 80061; 82553; 84443; 84484; 85025; 86140; 93005; 94760; J0248; J1100; J1650; J7050; J8540; Q0162

== ENCOUNTER 2022-07-11 15:49 | Inpatient (IN) | payer OTHER ==
[2022-07-11 16:31] LABS: #Eosinphils 0.1 thou/uL (0.0-0.7); #Lymphocytes 2.9 thou/uL (1.20-3.40); #Monocytes 1.5 thou/uL (0.11-0.59); #Neutrophils 8.2 thou/uL (1.40-6.50); %Basophils 0.2 % (0.0-1.0); %Eosinophils 0.8 % (0.0-10.0); %Lymphocytes 22.9 % (21.0-51.0); %Monocytes 11.5 % (0.0-10.0); %Neutrophils 64.5 % (42.0-75.0); Hemoglobin 11.3 g/dL (12.0-16.0); Mean Corpuscular HGB CONC 31.6 g/dL (32.0-36.0); Mean Corpuscular Hemoglobin 27.9 pg (27.0-31.0); Mean Corpuscular Volume 88.4 fl (78.0-98.0); Platelet Count 253 10x3/uL (130-400); RBC Distribution Width 16.1 % (11.5-14.5); Red Blood Cell (RBC) Count 4.06 mill/uL (4.20-5.40); White Blood Cell (WBC) Count 12.6 10x3/uL (4.8-10.8)
[2022-07-11 16:39] LABS: BHCG - Serum Negative (NEGATIVE); Pregs Control Background? CLEAR/WHITE (CLR/WHITE); Pregs Control Bar Appear? YES (CONTROL BAR)
[2022-07-11 16:55] LABS: ALT (SGPT) 32 U/L (8-55); AST (SGOT) 24 U/L (5-34); Albumin 3.4 g/dL (3.5-5.0); Alkaline Phosphatase 145 U/L (40-110); Anion Gap 13 mmol/L (10-20); BUN (Urea Nitrogen) 12 mg/dL (7.0-18.7); Bilirubin, Total 1.8 mg/dL (0.2-1.2); Calc. Creatinine Clearance 0 mL/min (70-130); Calcium 9.3 mg/dL (7.8-10.44); Carbon Dioxide 23 mmol/L (22-29); Chloride 106 mmol/L (98-107); Estimated GFR 50; Globulin 4.3 g/dL (2.4-3.5); Glucose 225 mg/dL (70-105); Protein, Total 7.7 g/dL (6.0-8.3); Sodium 138 mmol/L (136-145)
[2022-07-11] MEDS ORDERED: cefTRIAXone\\ROCEPHIN 2 GM VIAL ONE (19:56)
[2022-07-11] MEDS ORDERED: Azithromycin 500 MG VIAL ONE (20:43)
[2022-07-11] MEDS ORDERED: Acetaminophen 325 MG TAB PO PRN (20:45)
[2022-07-11] MEDS ORDERED: Ondansetron ODT 4 MG TAB SL PRN (20:45)
[2022-07-11] MEDS ORDERED: Ondansetron PF 4 MG/2 ML Vial IVP PRN (20:45)
[2022-07-11] MEDS ORDERED: Senokot S 8.6-50 MG TAB PO PRN (20:57)
[2022-07-11] MEDS ORDERED: Azithromycin 500 MG in Sodium Chloride 0.9% 250 ML 250 ML IVPB SCH (21:00)
[2022-07-11] MEDS ORDERED: Heparin 10,000 UNITS/ 10 ML VIAL ONE (21:37)
[2022-07-11] MEDS ORDERED: Famotidine 20 MG TAB ONE (21:37)
[2022-07-11] MEDS ORDERED: methylPREDNISolone Sod Succ 40 MG VIAL ONE (21:37)
[2022-07-11] MEDS: methylPREDNISolone Sod Succ 40 MG VIAL IVP SCH (21:58)
[2022-07-11] MEDS: Heparin 5,000 UNITS/ML VIAL SC SCH (21:59)
[2022-07-11] MEDS: Famotidine 20 MG TAB PO SCH (22:01)
[2022-07-11] MEDS: PARoxetine 20 MG TAB PO SCH (22:03)
[2022-07-11] MEDS: Aripiprazole 10 MG TAB PO SCH (22:04)
[2022-07-11] MEDS: Montelukast Sodium 10 mg Tablet PO SCH (22:04)
[2022-07-11] MEDS ORDERED: Vancomycin HCl 2.5 GM in Sodium Chloride 0.9% 500 ML IVPB SCH (23:30)
[2022-07-12 06:03] LABS: #Lymphocytes 1.1 thou/uL (1.20-3.40); #Monocytes 0.4 thou/uL (0.11-0.59); #Neutrophils 10.8 thou/uL (1.40-6.50); %Basophils 0.1 % (0.0-1.0); %Eosinophils 0.1 % (0.0-10.0); %Lymphocytes 9.1 % (21.0-51.0); %Neutrophils 87.8 % (42.0-75.0); Hemoglobin 10.3 g/dL (12.0-16.0); Mean Corpuscular HGB CONC 30.8 g/dL (32.0-36.0); Mean Corpuscular Hemoglobin 27.6 pg (27.0-31.0); Mean Corpuscular Volume 89.7 fl (78.0-98.0); Mean Platelet Volume 10.8 fL (7.4-10.4); Platelet Count 243 10x3/uL (130-400); Red Blood Cell (RBC) Count 3.71 mill/uL (4.20-5.40); White Blood Cell (WBC) Count 12.3 10x3/uL (4.8-10.8)
[2022-07-12 06:21] LABS: Anion Gap 15 mmol/L (10-20); BUN (Urea Nitrogen) 12 mg/dL (7.0-18.7); Calc. Creatinine Clearance 0 mL/min (70-130); Calcium 9.1 mg/dL (7.8-10.44); Carbon Dioxide 21 mmol/L (22-29); Chloride 107 mmol/L (98-107); Estimated GFR 53; Glucose 293 mg/dL (70-105); Potassium 5.2 mmol/L (3.5-5.1); Sodium 138 mmol/L (136-145)
[2022-07-12] MEDS ORDERED: CEFAZOLIN 2 GM in Sodium Chloride 0.9% 100 ML IVPB SCH (07:45)
[2022-07-12 07:53] LABS: SARS-CoV-2 NAA Rapid Test DETECTED (NotDetected)
[2022-07-12] MEDS ORDERED: Albuterol 200 PUFF (6.7GM INHALER) INH SCH (08:30)
[2022-07-12] MEDS ORDERED: Midazolam HCl 2 mg/2 ml Vial ONE (11:13)
[2022-07-12] MEDS ORDERED: fentaNYL PF 100 MCG/2 ML SYRINGE ONE (11:13)
[2022-07-12] MEDS ORDERED: Rocuronium Bromide 50 MG/5 ML VIAL ONE (11:13)
[2022-07-12] MEDS ORDERED: SUGAMMADEX SODIUM 200 MG/2 ML VIAL ONE (11:13)
[2022-07-12] MEDS ORDERED: Phenylephrine 10 MG/ML VIAL ONE (11:15)
[2022-07-12] MEDS ORDERED: PHENYLEPHRINE-NS 100 MCG/ML 10 ML SYRINGE ONE (11:15)
[2022-07-12] MEDS ORDERED: Dexamethasone 4 mg/ml Vial ONE (12:31)
[2022-07-12] MEDS ORDERED: Bupivacaine HCl 0.5%/Epinephrine 1:200,000/PF 30 ml Vial ONE (12:31)
[2022-07-12] MEDS: Albuterol 200 PUFF (6.7GM INHALER) INH SCH ×2 (13:27→21:51)
[2022-07-12] MEDS ORDERED: CEFAZOLIN 2 GM VIAL ONE (13:33)
[2022-07-12] MEDS ORDERED: Sodium Chloride 0.9% 0 ML ONE (13:33)
[2022-07-12] MEDS ORDERED: Sodium Chloride 0.9% 100 ML ONE (13:33)
[2022-07-12] MEDS ORDERED: Ondansetron PF 4 MG/2 ML Vial ONE (15:05)
[2022-07-12] MEDS ORDERED: Rocuronium Bromide 10 MG/ML (10ML VIAL) ONE (15:05)
[2022-07-12] MEDS ORDERED: PROPOFOL 200 MG/20 ML VIAL ONE (15:05)
[2022-07-12] MEDS ORDERED: FENTANYL 50 MCG/ML 1 ML VIAL ONE ×5 (16:17→17:46)
[2022-07-12] MEDS ORDERED: Fentanyl 100 MCG/2 ML VIAL SLOW IVP PRN ×2 (16:54)
[2022-07-12] MEDS: Amlodipine 5 MG TAB PO SCH (18:20)
[2022-07-12] MEDS: Ferrous Sulfate 325 MG TAB PO SCH (18:20)
[2022-07-12] MEDS: Famotidine 20 MG TAB PO SCH ×2 (18:20→22:09)
[2022-07-12] MEDS: methylPREDNISolone Sod Succ 40 MG VIAL IVP SCH ×2 (18:21→22:12)
[2022-07-12] MEDS: Heparin 5,000 UNITS/ML VIAL SC SCH ×2 (18:21→22:10)
[2022-07-12] MEDS: Losartan 25 MG TAB PO SCH (18:25)
[2022-07-12] MEDS: Atorvastatin Calcium 40 MG TAB PO SCH (18:26)
[2022-07-12] MEDS: HYDROcodone/Acetaminophen 5/325 mg Tablet PO PRN ×2 (18:27→22:38)
[2022-07-12 19:19] VITALS: BMI 67.3
[2022-07-12] MEDS ORDERED: FENTANYL 50 MCG/ML 1 ML VIAL SLOW IVP PRN (19:43)
[2022-07-12] MEDS: FENTANYL 50 MCG/ML 1 ML VIAL SLOW IVP PRN (19:54)
[2022-07-12] MEDS: cefTRIAXone\\ROCEPHIN 1 GM in Sodium Chloride 0.9% 100 ML IVPB SCH (20:01)
[2022-07-12] MEDS ORDERED: Dextrose 50% Abboject 50 ML SYRINGE SLOW IVP PRN (22:08)
[2022-07-12] MEDS ORDERED: HumaLOG 300 UNITS/3 ML VIAL SC PRN (22:08)
[2022-07-12] MEDS ORDERED: Dextrose 5% in Water 1,000 ML IV PRN (22:08)
[2022-07-12] MEDS: PARoxetine 20 MG TAB PO SCH (22:09)
[2022-07-12] MEDS: Montelukast Sodium 10 mg Tablet PO SCH (22:10)
[2022-07-12] MEDS: Aripiprazole 10 MG TAB PO SCH (22:10)
[2022-07-13] MEDS ORDERED: valACYclovir 500 MG TAB PO SCH (00:15)
[2022-07-13] MEDS: FENTANYL 50 MCG/ML 1 ML VIAL SLOW IVP PRN (00:40)
[2022-07-13] MEDS: HumaLOG 300 UNITS/3 ML VIAL SC PRN ×4 (05:55→21:10)
[2022-07-13] MEDS: Amlodipine 5 MG TAB PO SCH (08:32)
[2022-07-13] MEDS: Ferrous Sulfate 325 MG TAB PO SCH (08:32)
[2022-07-13] MEDS: methylPREDNISolone Sod Succ 40 MG VIAL IVP SCH (08:32)
[2022-07-13] MEDS: Famotidine 20 MG TAB PO SCH ×2 (08:32→20:52)
[2022-07-13] MEDS: Heparin 5,000 UNITS/ML VIAL SC SCH ×3 (08:32→20:54)
[2022-07-13] MEDS ORDERED: Insulin Glargine 30 UNITS/0.3 ML VIAL SC SCH ×2 (13:00→17:45)
[2022-07-13] MEDS ORDERED: HumaLOG 300 UNITS/3 ML VIAL SC PRN (13:15)
[2022-07-13] MEDS: Atorvastatin Calcium 40 MG TAB PO SCH (18:10)
[2022-07-13] MEDS: Losartan 25 MG TAB PO SCH (18:10)
[2022-07-13] MEDS: Montelukast Sodium 10 mg Tablet PO SCH (20:52)
[2022-07-13] MEDS: Aripiprazole 10 MG TAB PO SCH (20:52)
[2022-07-13] MEDS: cefTRIAXone\\ROCEPHIN 1 GM in Sodium Chloride 0.9% 100 ML IVPB SCH (20:53)
[2022-07-13] MEDS: HYDROcodone/Acetaminophen 5/325 mg Tablet PO PRN (20:53)
[2022-07-13] MEDS: PARoxetine 20 MG TAB PO SCH (20:54)
[2022-07-13] MEDS ORDERED: methylPREDNISolone Sod Succ 40 MG VIAL IVP SCH (21:00)
[2022-07-13] MEDS: valACYclovir 500 MG TAB PO SCH (21:37)
[2022-07-14] MEDS: HumaLOG 300 UNITS/3 ML VIAL SC PRN ×3 (05:37→16:55)
[2022-07-14 07:00] LABS: Hemoglobin 9.7 g/dL (12.0-16.0); Mean Corpuscular HGB CONC 30.3 g/dL (32.0-36.0); Mean Corpuscular Hemoglobin 27.1 pg (27.0-31.0); Mean Corpuscular Volume 89.2 fl (78.0-98.0); Mean Platelet Volume 10.8 fL (7.4-10.4); Platelet Count 263 10x3/uL (130-400); White Blood Cell (WBC) Count 20.2 10x3/uL (4.8-10.8)
[2022-07-14 07:50] LABS: Band 1 % (5-11); Lymphocytes 17 % (21-51); MDiff Complete? YES; Monocytes 10 % (0-10); Neutrophil 72 % (42-75); Platelet Morphology Comment Appears Adequate; Polychromasia SLIGHT = 2-3 cells (100X) (0-2/hpf)
[2022-07-14] MEDS: metFORMIN 500 MG TAB PO SCH ×2 (08:58→16:55)
[2022-07-14] MEDS: Famotidine 20 MG TAB PO SCH ×2 (08:59→21:14)
[2022-07-14] MEDS: Amlodipine 5 MG TAB PO SCH (08:59)
[2022-07-14] MEDS: Heparin 5,000 UNITS/ML VIAL SC SCH ×3 (08:59→21:14)
[2022-07-14] MEDS: Ferrous Sulfate 325 MG TAB PO SCH (08:59)
[2022-07-14] MEDS: HYDROcodone/Acetaminophen 5/325 mg Tablet PO PRN ×4 (10:35→23:05)
[2022-07-14 10:54] LABS: Anion Gap 13 mmol/L (10-20); BUN (Urea Nitrogen) 22 mg/dL (7.0-18.7); Calc. Creatinine Clearance 145 mL/min (70-130); Calcium 9.6 mg/dL (7.8-10.44); Carbon Dioxide 21 mmol/L (22-29); Chloride 107 mmol/L (98-107); Estimated GFR 51; Glucose 218 mg/dL (70-105); Potassium 4.4 mmol/L (3.5-5.1); Sodium 137 mmol/L (136-145)
[2022-07-14] MEDS ORDERED: Albuterol 200 PUFF (6.7GM INHALER) INH SCH (14:15)
[2022-07-14] MEDS: Atorvastatin Calcium 40 MG TAB PO SCH (16:55)
[2022-07-14] MEDS: Losartan 25 MG TAB PO SCH (16:55)
[2022-07-14] MEDS: Albuterol 200 PUFF (6.7GM INHALER) INH SCH (18:32)
[2022-07-14] MEDS ORDERED: Insulin Glargine 30 UNITS/0.3 ML VIAL SC SCH (21:00)
[2022-07-14] MEDS: FENTANYL 50 MCG/ML 1 ML VIAL SLOW IVP PRN (21:01)
[2022-07-14] MEDS: cefTRIAXone\\ROCEPHIN 1 GM in Sodium Chloride 0.9% 100 ML IVPB SCH (21:01)
[2022-07-14] MEDS: PARoxetine 20 MG TAB PO SCH (21:14)
[2022-07-14] MEDS: Aripiprazole 10 MG TAB PO SCH (21:14)
[2022-07-14] MEDS: valACYclovir 500 MG TAB PO SCH (21:14)
[2022-07-14] MEDS: Montelukast Sodium 10 mg Tablet PO SCH (21:14)
[2022-07-15] MEDS: Albuterol 200 PUFF (6.7GM INHALER) INH SCH ×3 (02:15→14:36)
[2022-07-15] MEDS: HumaLOG 300 UNITS/3 ML VIAL SC PRN (05:33)
[2022-07-15 06:36] LABS: Anion Gap 14 mmol/L (10-20); BUN (Urea Nitrogen) 20 mg/dL (7.0-18.7); Calc. Creatinine Clearance 156 mL/min (70-130); Calcium 9.3 mg/dL (7.8-10.44); Carbon Dioxide 20 mmol/L (22-29); Chloride 106 mmol/L (98-107); Estimated GFR 56; Glucose 142 mg/dL (70-105); Potassium 4.2 mmol/L (3.5-5.1); Sodium 136 mmol/L (136-145)
[2022-07-15 07:01] LABS: Anisocytosis SLIGHT = 6-15 cells (100X) (0-5/hpf); Eosinophils 1 % (0-10); Hemoglobin 10.3 g/dL (12.0-16.0); Hypochromia SLIGHT = 6-15 cells (100X) (0-5/hpf); Lymphocytes 24 % (21-51); MDiff Complete? YES; Mean Corpuscular HGB CONC 30.5 g/dL (32.0-36.0); Mean Corpuscular Hemoglobin 27.2 pg (27.0-31.0); Mean Corpuscular Volume 89.3 fl (78.0-98.0); Mean Platelet Volume 10.9 fL (7.4-10.4); Monocytes 10 % (0-10); Neutrophil 65 % (42-75); Platelet Count 213 10x3/uL (130-400); Platelet Morphology Comment Appears Adequate; Polychromasia SLIGHT = 2-3 cells (100X) (0-2/hpf); RBC Distribution Width 16.1 % (11.5-14.5); Red Blood Cell (RBC) Count 3.79 mill/uL (4.20-5.40); White Blood Cell (WBC) Count 13.9 10x3/uL (4.8-10.8)
[2022-07-15] MEDS: Heparin 5,000 UNITS/ML VIAL SC SCH ×2 (08:25→14:37)
[2022-07-15] MEDS: Amlodipine 5 MG TAB PO SCH (08:26)
[2022-07-15] MEDS: metFORMIN 500 MG TAB PO SCH (08:26)
[2022-07-15] MEDS: Famotidine 20 MG TAB PO SCH (08:26)
[2022-07-15] MEDS: Ferrous Sulfate 325 MG TAB PO SCH (08:26)
[2022-07-15 10:13] VITALS: BP 124/74; TEMP 98.1
== END 2022-07-15 15:10 | disposition home health service (06) | DRG 166 ==
LOC: ERS 15:49 → T4-A 20:13 → ERHOLD 20:37 → UNDOADMOB 20:37 → SURG A 20:37 → T4-A 07-12 14:32 → OBSVTOIN 07-12 15:58
PROVIDERS: ADMIT Family Medicine; ATTEND Family Medicine
PROC: 0W9B40Z Drainage of Left Pleural Cavity with Drainage Device, Percutaneous Endoscopic Approach (ICD-10-PCS; principal; 2022-07-12)
DX: J90 Pleural effusion, not elsewhere classified (principal); J96.01 Acute respiratory failure with hypoxia; Z68.44 Body mass index [BMI] 60.0-69.9, adult; J45.909 Unspecified asthma, uncomplicated; I12.9 Hypertensive chronic kidney disease with stage 1 through stage 4 chronic kidney disease, or unspecified chronic kidney disease; N18.9 Chronic kidney disease, unspecified; E87.5 Hyperkalemia; T38.0X5A Adverse effect of glucocorticoids and synthetic analogues, initial encounter; U09.9 Post COVID-19 condition, unspecified; G47.33 Obstructive sleep apnea (adult) (pediatric); E66.01 Morbid (severe) obesity due to excess calories; F41.9 Anxiety disorder, unspecified; E11.65 Type 2 diabetes mellitus with hyperglycemia; E11.22 Type 2 diabetes mellitus with diabetic chronic kidney disease; F31.9 Bipolar disorder, unspecified; Z88.8 Allergy status to other drugs, medicaments and biological substances; Z91.011 Allergy to milk products; Z91.013 Allergy to seafood; Z90.710 Acquired absence of both cervix and uterus; Z82.49 Family history of ischemic heart disease and other diseases of the circulatory system; Z79.899 Other long term (current) drug therapy; Z79.51 Long term (current) use of inhaled steroids; Z79.84 Long term (current) use of oral hypoglycemic drugs; Z98.51 Tubal ligation status
CPT/HCPCS: 36415; 36416; 71045; 71275; 80048; 80053; 83605; 84484; 84703; 85025; 87040; 87070; 87205; 93005; 94640; 96372; 96374; 96375; 96376; G0378; J0456; J0696; J1100; J1644; J1815; J2250; J2370; J2405; J2704; J2920; J3010; J3490; J7050; J7620; Q9967; U0002

== ENCOUNTER 2022-07-27 13:49 | Outpatient (CLI) | payer OTHER | END 2022-07-27 13:50 | disposition home or self-care (01) | LOC: BICRAD 13:49 | PROVIDERS: ATTEND Thoracic Surgery (Cardiothoracic Vascular Surgery) | DX: J90 Pleural effusion, not elsewhere classified (principal); S22.32XA Fracture of one rib, left side, initial encounter for closed fracture; S22.31XA Fracture of one rib, right side, initial encounter for closed fracture | CPT/HCPCS: 36415; 71046; 82728; 83540; 83550 ==

== ENCOUNTER 2022-10-27 09:38 | Outpatient (CLI) | payer OTHER | END 2022-10-27 09:39 | disposition home or self-care (01) | LOC: BICMAMMO 09:38 | PROVIDERS: ATTEND Student in an Organized Health Care Education/Training Program | DX: Z12.31 Encounter for screening mammogram for malignant neoplasm of breast (principal) | CPT/HCPCS: 77063; 77067 ==

== ENCOUNTER 2023-05-15 19:39 | Emergency (ER) | payer OTHER ==
[2023-05-15] MEDS ORDERED: Morphine 4 MG/ML VIAL ONE ×2 (21:24→22:24)
== END 2023-05-15 22:55 | disposition home or self-care (01) ==
LOC: ERS 19:39
DX: S92.354A Nondisplaced fracture of fifth metatarsal bone, right foot, initial encounter for closed fracture (principal); I10 Essential (primary) hypertension; E11.9 Type 2 diabetes mellitus without complications; W01.0XXA Fall on same level from slipping, tripping and stumbling without subsequent striking against object, initial encounter
CPT/HCPCS: 28470; 96372; J2270

== ENCOUNTER 2023-10-06 14:19 | Outpatient (CLI) | payer OTHER | END 2023-10-06 14:20 | disposition home or self-care (01) | LOC: BICRAD 14:19 | PROVIDERS: ATTEND Nurse Practitioner Family | DX: R05.9 Cough, unspecified (principal); R09.89 Other specified symptoms and signs involving the circulatory and respiratory systems | CPT/HCPCS: 71046 ==

== ENCOUNTER 2024-07-16 20:10 | Emergency (ER) | payer OTHER | END 2024-07-16 22:01 | disposition home or self-care (01) | LOC: ERS 20:10 | DX: J06.9 Acute upper respiratory infection, unspecified (principal); B97.89 Other viral agents as the cause of diseases classified elsewhere; I10 Essential (primary) hypertension; E11.9 Type 2 diabetes mellitus without complications | CPT/HCPCS: 71046; 87428 ==

== ENCOUNTER 2024-08-18 15:21 | Emergency (ER) | payer OTHER | END 2024-08-18 17:14 | disposition home or self-care (01) | LOC: ERS 15:21 | DX: J11.1 Influenza due to unidentified influenza virus with other respiratory manifestations (principal); I10 Essential (primary) hypertension; E11.9 Type 2 diabetes mellitus without complications; F17.210 Nicotine dependence, cigarettes, uncomplicated | CPT/HCPCS: 87428; 99283 ==

== ENCOUNTER 2025-03-31 13:04 | Outpatient (CLI) | payer OTHER | END 2025-03-31 13:05 | disposition home or self-care (01) | PROVIDERS: ATTEND Family Medicine | DX: J45.909 Unspecified asthma, uncomplicated (principal); E66.01 Morbid (severe) obesity due to excess calories; Z68.44 Body mass index [BMI] 60.0-69.9, adult ==